=== PATIENT | female | born 1990 | race Two or more races ===

== ENCOUNTER 2019-02-17 20:46 | Emergency (ER) | payer OTHER ==
[~2019-02-17] VITALS: Ht 157.5 cm; Wt 64.4 kg
== END 2019-02-18 08:20 | disposition home or self-care (01) ==
LOC: ER 20:46
DX: O26.892 Other specified pregnancy related conditions, second trimester (principal); K63.89 Other specified diseases of intestine; R10.31 Right lower quadrant pain; Z34.02 Encounter for supervision of normal first pregnancy, second trimester
CPT/HCPCS: 72195; 74181

== ENCOUNTER 2019-07-12 22:58 | Inpatient (IN) | payer OTHER ==
[~2019-07-12] VITALS: Ht 160 cm; Wt 68.9 kg
[2019-07-12] MEDS ORDERED: PRENATAL TABLE1 EAC1 PO (23:47)
== END 2019-07-14 16:29 | disposition home or self-care (01) | DRG 807 ==
LOC: LDR 22:58 → OB/GYN 22:58
PROVIDERS: ADMIT Obstetrics & Gynecology
PROC: 10E0XZZ Delivery of Products of Conception, External Approach (ICD-10-PCS; principal; 2019-07-12)
PROC: 4A1HXCZ Monitoring of Products of Conception, Cardiac Rate, External Approach (ICD-10-PCS; 2019-07-12)
DX: O80 Encounter for full-term uncomplicated delivery (principal); Z37.0 Single live birth; Z3A.38 38 weeks gestation of pregnancy